=== PATIENT | female | born 1945 | race Caucasian/White ===

== ENCOUNTER 2016-08-29 15:19 | Emergency (ER) | payer MEDICARE ==
[~2016-08-29] VITALS: Ht 162.6 cm; Wt 88.6 kg
[2016-08-29 15:23] VITALS: BP 153/71; PULSE 72; RESP 18; O2SAT 94
--- NOTE | 2016-08-29 16:03 | DRSVH ---
PROCEDURE: CT BRAIN WITHOUT CONTRAST ([id number]) INDICATIONS: GLF with frontal head impact/headache TECHNIQUE: Noncontrast 4.5 mm thick angled axial sections acquired from the foramen magnum to the vertex, with c oronal reformats. COMPARISON: None. FINDINGS: Image quality: Excellent. CSF spaces: Basal cisterns are patent. No extra-axial fluid collections. The ventricles are symmet tamara in size and shape. Brain: No intracranial bleeds or masses. There is cerebral volume loss for age, with resultant vent ricular and sulcal prominence. There are periventricular and deep white matter chronic small vessel ischemic changes. There is intracranial internal carotid artery atherosclerosis. Skull and face: Calvarium and visualized facial bones appear intact, without suspicious lesions. Sinuses: Visualized sinuses and mastoids are clear. IMPRESSION: No acute intracranial abnormality. Dictated by: Theodore Velez M.D. on 08/29/2016 at 16:01 Approved by: Theodore Velez M.D. on 08/29/2016 at 16:02
--- NOTE | 2016-08-29 17:02 | ED.REPORT ---
HPI-General Illness Date of Service Aug 29, 2016 ED Provider: Jonathan Short MD Pt is a 71 y/o female w/ a hx of seizures presenting to the ED via [facility] team due to mechanical ground level fall which occurred prior to arrival. The patient was walking into the hospital to take her for imaging and tripped and fell and hit her face on the ground. Pt denies change in LOC, numbness, weakness, CP, SOB, syncope, seizure. She was ambulatory afterwards. Nursing Notes Stated Complaint: GLF Chief Complaint: General Complaint Nursing Notes Reviewed: Yes Allergies: Uncoded Allergies: KEFLEX (Allergy, Severe, rash, 08/29/16) CODIENE , MORPHINE (Adverse Reaction, Mild, nausea and 'knocks me over"... , 08/29/16) General Time Seen by MD: 15:41 Chief Complaint Other (Head injury) Hx Obtained From: Patient, EMS Arrived By: Ambulance Sudden in Onset?: Yes Onset Occurred: Just prior to arrival Symptom Duration: Since onset Location: : Head Quality: Aching Severity: Current: Mild Severity: Maximum: Mild Past Medical History Past Medical History Seizures Past Surgical History Tonsilectomy Tubal ligation Cholecystectomy Knee Smoking History Unknown if Ever Smoker Ambulatory Status Independent Review of Systems Full Review of Systems Constitutional: Denies: Chills, Fever Respiratory: Denies: Non-productive cough, Shortness of breath Cardiovascular: Denies: Chest pain, Syncope GI: Denies: Abdominal pain, Nausea, Vomiting Musculoskeletal: Reports: Back pain (sacral), Denies: Neck pain Neurologic: Reports: Headache, Denies: Change LOC, Confusion, Dizziness, Focal weakness, Numbness, Problem walking, Seizure, Syncope Complete sys rev & neg: except as marked. Physical Exam Vital Signs Vital Signs Date Time Temp Pulse Resp B/P Pulse Ox O2 Delivery O2 Flow Rate FiO2 08/29/16 17:40 36.3 72 18 153/71 94 Room Air 08/29/16 15:23 36.3 72 18 153/71 94 Room Air Initial VS: Reviewed, Vital signs normal ENT: Mucous membranes moist, Conjunctiva normal, No scleral icterus Cardiovascular: Regular rate & rhythm, Heart sounds normal, Intact distal pulses Abdomen / GI: Soft, Non-tender, No guarding, No rebound, No distention Extremities: Vascular intact, Neuro intact, No swelling, No tenderness Skin: Warm, Dry, No cyanosis Psychiatric: Mood/affect normal, Behavior normal, Normal thought content Head / Eyes: Atraumatic, Normocephalic, PERRL Mild tenderness about midline anterior forehead No obvious trauma No deformity Neck: Atraumatic, Supple, No meningismus, Full range of motion, Non-tender Back: Atraumatic, Inspection NL, Full range of motion, No midline vertebral tend Mild tenderness about sacral region Interpretation & Diagnostics ECG Interpretation ECG Interpretation: Sinus rhythm rate 69 LAD Voltage criteria for LVH Time: 16:00 Interpreted by: ED physician Normal ECG Interpretation: No acute ischemic changes CT Head Interpretation IMPRESSION: No acute intracranial abnormality. Dictated by: Theodore Velez M.D. on 08/29/2016 at 16:01 Approved by: Theodore Velez M.D. on 08/29/2016 at 16:02 Study: Head CT no contrast Interpretation / Wet Read by: Interpret - Radiologist Re-Eval/Medical Decision Med Decision/Clinical Course Pt is a 71 y/o female w/ a hx of seizures presenting to the ED via [facility] team due to mechanical ground level fall which occurred prior to arrival. The patient was walking into the hospital to take her for imaging and tripped and fell and hit her face on the ground. Pt denies change in LOC, numbness, weakness, CP, SOB, syncope, seizure. She was ambulatory afterwards. Here in the emergency department the patient is afebrile stable vital signs and examination as above. Neurologic examination is completely unrevealing. Patient is not on any blood thinners. No significant signs of trauma. Patient did not exert a syncopal or seizure-like event. She never lost consciousness. This was an entirely mechanical fall. CT scan of the head was obtained and demonstrated no evidence of acute intracranial hemorrhage. Patient remained with normal mentation and was able to ambulate. She requested to be discharged home stating that she felt better. I feel that this is appropriate. Serial abdominal examinations revealed no other findings suggestive of acute traumatic injury. Follow-up and return precautions were reviewed in detail and she was discharged in good condition. Time of Eval: 17:08 Evaluation: Mental status normal, Neurologic nonfocal Re-Evaluation/Progress Note: Pt rechecked. Informed pt of plan for treatment. Pt understands and agrees with plan for treatment. F/U instructions and RTER warnings given. All questions addressed. Counseled Regarding: Diagnosis, Need for follow-up, When/why to return to ED Discharge & Departure Primary Impression: Minor head injury Encounter type: initial encounter Qualified Code: S00.90XA - Unspecified superficial injury of unspecified part of head, initial encounter Additional Impressions: Fall from ground level History of seizure disorder Disposition: Home Discharge Condition All VS Reviewed: Yes Condition: Stable Patient Instructions: Minor Head Injury (ED) Additional Instructions: Thank you for seeking care at the emergency room. It is difficult for us to make definitive diagnoses in the ED but we believe that you are experiencing a minor head injury. Our primary goal today in the ED was to evaluate you for any life-threatening conditions. Your evaluation was reassuring. Your head CT was normal today. You should follow-up with your primary doctor in the next week. You should return to the ED immediately if you develop fevers, vomiting, cough, shortness of breath, chest pain, lightheadedness, weakness or any other concerning signs or symptoms. Thank you for letting us partake in your care today. Referrals: Rusty Smith MD (PCP) Terry Attestation Portions of this note were transcribed by Walter Balbuena. I, Dr. Short personally performed the history, physical exam and medical decision-making; I reviewed and confirmed the accuracy of the information in the transcribed note. Signed by Terry Walker, 08/29/16 - 1800 copies to: Rusty Smith MD, Beck O MD Aug 29, 2016 17:02 WALTER BALBUENA Aug 29, 2016 17:03
[2016-08-29 17:40] VITALS: BP 153/71; PULSE 72; RESP 18; O2SAT 94
== END 2016-08-29 17:42 | disposition home or self-care (01) ==
LOC: SED 15:19
DX: S00.90XA Unspecified superficial injury of unspecified part of head, initial encounter (principal); W01.0XXA Fall on same level from slipping, tripping and stumbling without subsequent striking against object, initial encounter; Y93.01 Activity, walking, marching and hiking; Y92.239 Unspecified place in hospital as the place of occurrence of the external cause; Y99.8 Other external cause status; Z86.69 Personal history of other diseases of the nervous system and sense organs; Z88.5 Allergy status to narcotic agent; Z88.1 Allergy status to other antibiotic agents